=== PATIENT | female | born 1975 | race Two or more races ===

== ENCOUNTER 2019-07-14 10:57 | Emergency (ER) | payer BC ==
[~2019-07-14] VITALS: Ht 157.5 cm; Wt 65.8 kg
[2019-07-14 11:26] VITALS: BP 116/69
[2019-07-14] MEDS ORDERED: LIDOCAINE 1%-EPI 1:100,000 20 ML VIAL TP ONE (12:30)
[2019-07-14] MEDS ORDERED: LIDOCAINE 1%-EPI 1:100,000 20 ML VIAL ONE (12:31)
--- NOTE | 2019-07-14 13:19 | NUR ---
Patient discharged to home in stable condition. Written and verbal after care instructions given. Patient verbalizes understanding of instruction.
--- NOTE | 2019-07-14 13:19 | NUR ---
Pt agreed to follow up with primary doctor to check the wound in two days
== END 2019-07-14 13:21 | disposition home or self-care (01) ==
LOC: ER 11:00
DX: S61.512A Laceration without foreign body of left wrist, initial encounter (principal); W26.0XXA Contact with knife, initial encounter; Y93.89 Activity, other specified; Y92.89 Other specified places as the place of occurrence of the external cause; Y99.8 Other external cause status
CPT/HCPCS: 12001; 99283; J3490